=== PATIENT | male | born 2000 | race Caucasian/White ===

== ENCOUNTER → 2018-09-02 14:43 | Emergency (ER) | payer OTHER ==
[2018-09-02 17:50] VITALS: BP 132/69
--- NOTE | 2018-09-03 06:22 | ED ---
Laceration/Wound HPI - HPI Summary HPI Summary: Patient is a 17-year-old male with no significant PMH presenting to the ED with right knee laceration. He states were playing basketball, he tripped and fell, landing directly over his knee and lacerating the area. He arrives with a 3 cm laceration to the right knee which is approximately 0.5 cm in depth. He is endorsing pain, but is able to ambulate. He is flexing his sending the knee without pain. He denies any numbness or tingling. Denies significant amount of blood loss. He takes no medications and denies any blood thinners. He denies any other injuries or hitting his head or LOC. - History of Current Complaint Stated Complaint: RIGHT KNEE INJURY PER PT Time Seen by Provider: 09/02/18 14:59 Hx Obtained From: Patient Mechanism of Injury: Sharp/Blunt Trauma Onset/Duration: Sudden Onset Aggravating: Movement Timing: Constant Onset Severity: Mild Current Severity: Mild Pain Intensity: 0 Pain Scale Used: 0-10 Numeric Associated Signs & Symptoms: Negative - Allergy/Home Medications Allergies/Adverse Reactions: Allergies Allergy/AdvReac Type Severity Reaction Status Date / Time No Known Allergies Allergy Verified 09/02/18 14:50 PMH/Surg Hx/FS Hx/Imm Hx Previously Healthy: Yes - Immunization History Date of Tetanus Vaccine: 2016 Hx Pertussis Vaccination: No Immunizations Up to Date: Yes Infectious Disease History: No Infectious Disease History: Denies: Traveled Outside the [place] in Last 30 Days - Social History Occupation: Unemployed, Student Lives: Dormitory/Roommates Alcohol Use: Weekly Hx Substance Use: Yes Substance Use Type: Reports: Marijuana Smoking Status (MU): Never Smoked Tobacco Review of Systems Negative: Fever, Chills, Fatigue, Skin Diaphoresis Negative: Palpitations, Chest Pain Negative: Shortness Of Breath, Cough Genitourinary: Negative Positive: no symptoms reported, see HPI Positive: Arthralgia Skin: Negative All Other Systems Reviewed And Are Negative: Yes Physical Exam Triage Information Reviewed: Yes Vital Signs On Initial Exam: Initial Vitals Temp Pulse Resp BP Pulse Ox 97.9 F 101 20 131/74 98 09/02/18 14:50 09/02/18 14:50 09/02/18 14:50 09/02/18 14:50 09/02/18 14:50 Vital Signs Reviewed: Yes Appearance: Positive: Well-Appearing, No Pain Distress, Well-Nourished Skin: Positive: Warm, Skin Color Reflects Adequate Perfusion, Other - R knee laceration Head/Face: Positive: Normal Head/Face Inspection Eyes: Positive: EOMI, Conjunctiva Clear Neck: Positive: Supple, No Lymphadenopathy Respiratory/Lung Sounds: Positive: Clear to Auscultation, Breath Sounds Present Cardiovascular: Positive: Pulses are Symmetrical in both Upper and Lower Extremities Musculoskeletal: Positive: Strength/ROM Intact Neurological: Positive: Speech Normal Psychiatric: Positive: Affect/Mood Appropriate Diagnostics - Vital Signs Vital Signs Temp Pulse Resp BP Pulse Ox 09/02/18 17:49 98.9 F 73 0 132/69 95 09/02/18 14:50 97.9 F 101 20 131/74 98 - Laboratory Lab Statement: Any lab studies that have been ordered have been reviewed, and results considered in the medical decision making process. Laceration Repair Course/Dx - Course Course Of Treatment: During the course of treatment, the patient's evaluated for right knee laceration. Patient continues to be able to flex and extend the knee, does not appear to affect the quadriceps tendon. X-ray obtained: Subcutaneous emphysema with gas noted in the joint space. No acute osseous injury. Cleansed wound thoroughly using 60 cc normal saline which had irrigation. Bupivacaine and lidocaine without epi used as local anesthetic. This with good effect. One deep suture placed. Therefore, 3-0 Prolene using simple interrupted. Telfa bandage applied and Colt wrapped. He will follow-up with orthopedics if any symptoms worsen. He is given Keflex 4 times daily 7 days due to joint space involvement. Tetanus updated 2017. Suture removal in 10 days. - Differential Dx Differental Diagnoses: Avulsion, Laceration, Tendon Laceration - Clinical Impression Provider Diagnoses: Knee laceration Discharge - Sign-Out/Discharge Documenting (check all that apply): Patient Departure Patient Received Moderate/Deep Sedation with Procedure: No - Discharge Plan Condition: Stable Disposition: HOME Prescriptions: Cephalexin CAP* [Keflex CAP*] 500 mg PO QID #28 cap MDD 4 Patient Education Materials: Laceration (ED) Referrals: No Primary Care Phys,NOPCP [Primary Care Provider] - Additional Instructions: Keflex four times daily x 7 days Keep the wound clean Keep the wound covered 2-3 days, then leave open to air unless it continues to bleed Suture removal in 10 days if he develop any worsening redness, swelling, pain moving up the leg or down the leg or red streaking up or down the leg, return to the ED - Billing Disposition and Condition Condition: STABLE Disposition: Home
== END | disposition home or self-care (01) ==
LOC: ED 14:43
DX: S81.011A Laceration without foreign body, right knee, initial encounter (principal); T79.7XXA Traumatic subcutaneous emphysema, initial encounter; W01.0XXA Fall on same level from slipping, tripping and stumbling without subsequent striking against object, initial encounter; Y93.67 Activity, basketball; Y92.310 Basketball court as the place of occurrence of the external cause
CPT/HCPCS: 99282